=== PATIENT | female | born 2000 | race Caucasian/White ===

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

== ENCOUNTER 2021-01-08 23:02 | Emergency (ER) | payer OTHER ==
[~2021-01-08 23:02] MED LIST: AMOXICILLIN875 MG PO; ANTIVERT25 MG PO; BENADRYL25 MG PO; BENTYL10 MG PO; DEXAMETHASONE4 MG PO; KEFLEX250 MG PO; NAPROXEN500 MG PO; OFLOXACIN5 M2 AU; REGLAN10 MG PO; REGLAN5 MG PO; RIZATRIPTAN10 M1 PO; TOPIRAMATE25 MG PO; ZOFRAN4 MG PO
[2021-01-08] MEDS ORDERED: DICLOFENAC SODI75 MG PO (23:33)
[2021-01-08] MEDS ORDERED: NEURONTIN300 MG PO (23:33)
== END 2021-01-08 23:45 | disposition home or self-care (01) ==
LOC: FER 23:02
DX: M54.12 Radiculopathy, cervical region (principal)
CPT/HCPCS: 99283

== ENCOUNTER 2021-07-17 19:14 | Emergency (ER) | payer OTHER ==
[~2021-07-17 19:14] MED LIST changes: +DICLOFENAC SODI75 MG PO; +NEURONTIN300 MG PO
[2021-07-17 22:17] LABS: BASOPHIL 0.4 % (0-2); EOSINOPHIL 1.5 % (0-5); HCT 39.3 % (37.0-47.0); HGB 13.4 g/dl (12.5-16.0); LYMPHOCYTE 39.2 % (15-48); MCH 32.2 pg (25.0-31.0); MCHC 34.1 g/dL (32.0-36.0); MCV 94.5 fL (78.0-100.0); MONOCYTE 5.9 % (0-12); MPV 8.6 fL (6.0-9.5); NEUTROPHIL 52.8 % (41-80); NRBC 0; PLT 310 K/uL (150-400); RBC 4.16 M/uL (4.20-5.40); RDW 11.8 % (11.5-14.0)
[2021-07-17 22:25] LABS: BILIRUBIN NEGATIVE (NEGATIVE); BLOOD TRACE-INTACT Ery/uL (NEGATIVE); CLARITY CLEAR (CLEAR); COLOR YELLOW (YELLOW); GLUCOSE (U) NORMAL (NORMAL); LEUKOCYTES NEGATIVE Leu/uL (NEGATIVE); NITRITE NEGATIVE (NEGATIVE); PROTEIN NEGATIVE (NEGATIVE); UROBILINOGEN 0.2 mg/dL (0.2-1.0)
[2021-07-17 22:32] LABS: SQUAMOUS EPITHELIAL CELLS RARE; URINARY RBC RARE
[2021-07-17 22:37] LABS: ALBUMIN 3.7 g/dL (3.4-5.0); BILIRUBIN - TOTAL 0.2 mg/dL (0.2-1.0); BUN/CREAT RATIO (CALC) 12.6 RATIO; CREATININE 0.87 mg/dL (0.51-0.95); GLOBULIN (CALCULATION) 3.5 g/dL; POTASSIUM 3.9 mmol/L (3.5-5.1); TOTAL PROTEIN 7.2 g/dL (6.4-8.2)
== END 2021-07-17 23:49 | disposition home or self-care (01) ==
LOC: FER 19:14
PROVIDERS: Emergency Medicine
DX: R10.11 Right upper quadrant pain (principal)
CPT/HCPCS: 36415; 80053; 81001; 83690; 84484; 85025; 93005; J0780; J1200; J1885

== ENCOUNTER 2021-10-08 11:31 | Emergency (ER) | payer OTHER ==
[2021-10-08 13:23] LABS: BASOPHIL 0.6 % (0-2); EOSINOPHIL 0.9 % (0-5); HCT 41.3 % (37.0-47.0); HGB 14.1 g/dl (12.5-16.0); LYMPHOCYTE 32.2 % (15-48); MCH 32.4 pg (25.0-31.0); MCHC 34.1 g/dL (32.0-36.0); MCV 94.9 fL (78.0-100.0); MONOCYTE 6.3 % (0-12); MPV 8.7 fL (6.0-9.5); NEUTROPHIL 59.7 % (41-80); NRBC 0; PLT 318 K/uL (150-400); RBC 4.35 M/uL (4.20-5.40); RDW 11.6 % (11.5-14.0)
[2021-10-08 13:24] LABS: BILIRUBIN NEGATIVE (NEGATIVE); BLOOD TRACE-INTACT Ery/uL (NEGATIVE); CLARITY CLEAR (CLEAR); COLOR YELLOW (YELLOW); GLUCOSE (U) NORMAL (NORMAL); LEUKOCYTES NEGATIVE Leu/uL (NEGATIVE); NITRITE NEGATIVE (NEGATIVE); PROTEIN NEGATIVE (NEGATIVE); SPECIFIC GRAVITY 1.015 (1.001-1.030); UROBILINOGEN 0.2 mg/dL (0.2-1.0)
[2021-10-08 13:33] LABS: URINARY RBC RARE
[2021-10-08 13:36] LABS: ALBUMIN 4.2 g/dL (3.4-5.0); BILIRUBIN - TOTAL 0.4 mg/dL (0.2-1.0); CREATININE 0.87 mg/dL (0.51-0.95); GLOBULIN (CALCULATION) 3.6 g/dL; POTASSIUM 4.1 mmol/L (3.5-5.1); TOTAL PROTEIN 7.8 g/dL (6.4-8.2)
[2021-10-08] MEDS ORDERED: AUGMENTIN 875-1 EACH PO (16:48)
== END 2021-10-08 17:09 | disposition home or self-care (01) ==
LOC: FER 11:31
PROVIDERS: Physician Assistant
DX: K52.9 Noninfective gastroenteritis and colitis, unspecified (principal)
CPT/HCPCS: 36415; 80053; 81001; 83690; 85025; Q9967

== ENCOUNTER 2021-12-25 18:58 | Emergency (ER) | payer OTHER ==
[~2021-12-25 18:58] MED LIST changes: +AUGMENTIN 875-1 EACH PO
[2021-12-25 20:08] LABS: BILIRUBIN NEGATIVE (NEGATIVE); BLOOD NEGATIVE Ery/uL (NEGATIVE); CLARITY CLEAR (CLEAR); COLOR YELLOW (YELLOW); GLUCOSE (U) NORMAL (NORMAL); LEUKOCYTES NEGATIVE Leu/uL (NEGATIVE); NITRITE NEGATIVE (NEGATIVE); PROTEIN NEGATIVE (NEGATIVE); SPECIFIC GRAVITY <=1.005 (1.001-1.030); UROBILINOGEN 0.2 mg/dL (0.2-1.0)
[2021-12-25 20:08] LABS: BASOPHIL 0.3 % (0-2); EOSINOPHIL 0.5 % (0-5); HCT 43.8 % (37.0-47.0); HGB 15.1 g/dl (12.5-16.0); LYMPHOCYTE 27.4 % (15-48); MCH 32.9 pg (25.0-31.0); MCHC 34.5 g/dL (32.0-36.0); MCV 95.4 fL (78.0-100.0); MONOCYTE 6.7 % (0-12); MPV 8.4 fL (6.0-9.5); NEUTROPHIL 64.7 % (41-80); NRBC 0; PLT 289 K/uL (150-400); RBC 4.59 M/uL (4.20-5.40); RDW 11.7 % (11.5-14.0); WBC 11.1 K/uL (4.0-10.5)
[2021-12-25 20:29] LABS: BILIRUBIN - TOTAL 0.4 mg/dL (0.2-1.0); BUN/CREAT RATIO (CALC) 12.8 RATIO; CREATININE 0.78 mg/dL (0.51-0.95); POTASSIUM 3.9 mmol/L (3.5-5.1)
== END 2021-12-25 22:14 | disposition home or self-care (01) ==
LOC: FER 18:58
PROVIDERS: Emergency Medicine
DX: R10.11 Right upper quadrant pain (principal); I10 Essential (primary) hypertension
CPT/HCPCS: 36415; 80053; 81003; 82150; 83690; 85025; J1885; J2405; J7030; Q9967